=== PATIENT | female | born 1995 | race Caucasian/White ===

== ENCOUNTER 2025-04-27 10:43 | Inpatient (IN) | payer BC ==
[2025-05-01] MEDS ORDERED: Diphenoxylate HCl/Atropine Tablet PO PRN (16:48)
[2025-05-01] MEDS ORDERED: Methylergonovine 0.2 MG/ML VIAL IM PRN (16:48)
[2025-05-01] MEDS ORDERED: Carboprost 250 MCG/ML AMP IM PRN (16:48)
[2025-05-01] MEDS ORDERED: hydrALAZINE 20 MG/ML VIAL SLOW IVP PRN (16:48)
[2025-05-01] MEDS ORDERED: Tranexamic Acid 1,000 MG/10 ML VIAL IVP PRN (16:48)
[2025-05-01] MEDS ORDERED: Ondansetron PF 4 MG/2 ML Vial IVP PRN ×2 (16:48→20:05)
[2025-05-01] MEDS ORDERED: Lidocaine 1% (PF) 30 ML VIAL SC PRN (16:48)
[2025-05-01] MEDS ORDERED: Oxytocin 30 units/NS 500 ML 500 ML IV SCH (17:00)
[2025-05-01 18:35] LABS: Hematocrit 38.5 % (34.9-44.5); Hemoglobin 12.6 g/dL (12.0-15.5); Mean Corpuscular Hemoglobin 28.6 pg (27.0-33.0); Mean Corpuscular Volume 87.5 fL (81.6-98.3); Platelet Count 241 10x3/uL (150-450); Red Blood Cell (RBC) Count 4.40 10x6/uL (3.90-5.03); White Blood Cell (WBC) Count 14.61 10x3/uL (3.5-10.5)
[2025-05-01 19:08] VITALS: BMI 28.5
[2025-05-01] MEDS: fentaNYL/Ropivacaine Epidural 100 ML ONE (19:55)
[2025-05-01] MEDS ORDERED: Acetaminophen 325 MG TAB PO PRN (20:05)
[2025-05-01] MEDS ORDERED: diphenhydrAMINE 50 MG/ML VIAL IVP PRN (20:05)
[2025-05-01] MEDS ORDERED: Communication Order-Pharmacy FS SCH (20:15)
[2025-05-01] MEDS ORDERED: fentaNYL 2 mcg/Ropivacaine 0.2% Epidural 100 ML CADD EPIDURAL SCH (20:15)
[2025-05-01 21:12] LABS: Hep B Surf Ag - L&D Non-Reactive S/CO (NonReactive)
[2025-05-01 21:13] LABS: Syphilis Antibody Index 0.07 S/CO (<1.00 Non-Reactive)
[2025-05-02 00:27] LABS: Analyzer IN Cardio CS NICU; RapidComm Collect By RN; pH (Cord, venous) 7.190 (7.250-7.350)
[2025-05-02 00:32] LABS: Analyzer IN Cardio CS NICU; RapidComm Collect By RN
[2025-05-02] MEDS: Oxytocin 30 units/NS 500 ML 500 ML IV SCH (01:19)
[2025-05-02] MEDS: Ibuprofen 800 MG TAB PO PRN (01:19)
[2025-05-02] MEDS ORDERED: Ondansetron PF 4 MG/2 ML Vial IVP PRN (03:51)
[2025-05-02] MEDS ORDERED: Boostrix 0.5 ML (Tdap) VIAL (>/=7 yrs of age) IM ONE (03:51)
[2025-05-02] MEDS ORDERED: Milk Of Magnesia 30 ML UDCUP PO PRN (03:51)
[2025-05-02] MEDS ORDERED: Benzocaine-Menthol 82.5 ML CAN TOP PRN (03:51)
[2025-05-02] MEDS ORDERED: Witch Hazel 100 PAD JAR TOP PRN (03:51)
[2025-05-02] MEDS ORDERED: Preparation H Ointment 28 GM TUBE PR PRN (03:51)
[2025-05-02] MEDS ORDERED: hydrALAZINE 20 MG/ML VIAL SLOW IVP PRN (03:51)
[2025-05-02] MEDS ORDERED: Lanolin Ointment 7 GM TUBE TOP PRN (03:51)
[2025-05-02] MEDS ORDERED: Bisacodyl 10 MG SUPP PR PRN (03:51)
[2025-05-02] MEDS ORDERED: Methylergonovine 0.2 MG/ML VIAL IM PRN (03:51)
[2025-05-02] MEDS ORDERED: diphenhydrAMINE 25 MG CAP PO PRN (03:51)
[2025-05-02] MEDS ORDERED: Oxytocin 30 units/NS 500 ML 500 ML IV SCH (03:51)
[2025-05-02] MEDS: Ibuprofen 800 MG TAB PO SCH (08:45)
[2025-05-02] MEDS ORDERED: Bupivacaine 0.25% HCL 30 ML VIAL ONE (12:38)
[2025-05-02] MEDS: Ferrous Sulfate 325 MG TAB PO SCH (18:56)
[2025-05-03 14:44] VITALS: BP 111/63; TEMP 97.8
== END 2025-05-03 13:30 | disposition home or self-care (01) | DRG 806 ==
LOC: CSHLD 05-01 16:47 → CSHPP 05-02 03:10
PROVIDERS: ADMIT Family Medicine; ATTEND Family Medicine
PROC: 10D07Z6 Extraction of Products of Conception, Vacuum, Via Natural or Artificial Opening (ICD-10-PCS; principal; 2025-05-02)
PROC: 0UQGXZZ Repair Vagina, External Approach (ICD-10-PCS; 2025-05-02)
DX: O48.0 Post-term pregnancy (principal); O71.4 Obstetric high vaginal laceration alone; Z37.0 Single live birth; Z3A.40 40 weeks gestation of pregnancy
CPT/HCPCS: 36415; 51701; 51702; 82805; 85027; 86780; 86850; 86900; 86901; 87340; J0665; J2590; J3105